=== PATIENT | female | born 1945 | race Caucasian/White ===

== ENCOUNTER 2017-10-08 17:59 | Emergency (ER) | payer OTHER ==
[~2017-10-08] VITALS: Ht 170.2 cm; Wt 88.7 kg
[~2017-10-08 17:59] MED LIST: AMLODIPINE BESY10 MG PO; ASPIR 8181 M1 PO; ATORVASTATIN CA40 MG PO; ATORVASTATIN CA80 MG PO; AZITHROMYCIN250 MG1 PO; BAYER CHEWABLE81 MG PO; BENICAR HCT 401 EAC1 PO; BENICAR20 MG PO; CEFTIN250 MG PO; CENTRUM SILVER1 EAC3 PO; CLONAZEPAM0.5 MG PO; CLONIDINE HCL0.1 MG PO; COZAAR25 MG PO; DEXILANT60 MG PO; DOCUSATE SODIU100 MG PO; ENDOCET 5-3251 EACH PO; FENOFIBRATE145 M1 PO; GABAPENTIN300 MG PO; GLIPIZIDE XL5 MG PO; KEFLEX500 MG PO; LINZESS145 MCG PO; LOPRESSOR100 M1 PO; LOSARTAN-HCTZ1 EAC1 PO; LOVENOX40 MG/0.4 SC; MACROBID100 MG PO; MECLIZINE HCL25 MG PO; METFORMIN HCL500 MG PO; METOPROLOL TAR100 MG PO; MIRALAX255 GM PO; NAMENDA XR28 MG PO; NAMENDA10 MG PO; NEXIUM40 MG PO; OXYBUTYNIN CHLOR5 MG PO; PRAVASTATIN SOD40 MG PO; SERTRALINE HCL25 MG PO; SERTRALINE HCL50 MG PO; STOOL SOFTENER100 MG PO; TOPAMAX50 MG PO; TOPIRAMATE50 MG PO; TOVIAZ4 MG PO
[2017-10-08] MEDS ORDERED: KEFLEX500 MG PO (21:02)
[2017-10-08] MEDS ORDERED: BACTRIM,SEPT1 TABLET PO (21:02)
[2017-10-08 21:19] VITALS: BP 212/96
== END 2017-10-08 21:20 | disposition home or self-care (01) ==
LOC: EME 17:59
PROC: 0H9EXZZ Drainage of Left Lower Arm Skin, External Approach (ICD-10-PCS; principal; 2017-10-08)
DX: L02.414 Cutaneous abscess of left upper limb (principal); L03.114 Cellulitis of left upper limb; F03.90 Unspecified dementia, unspecified severity, without behavioral disturbance, psychotic disturbance, mood disturbance, and anxiety; I10 Essential (primary) hypertension; E78.5 Hyperlipidemia, unspecified; E11.9 Type 2 diabetes mellitus without complications; Z79.84 Long term (current) use of oral hypoglycemic drugs; Z79.82 Long term (current) use of aspirin; Z86.73 Personal history of transient ischemic attack (TIA), and cerebral infarction without residual deficits
CPT/HCPCS: 99281; 99284